=== PATIENT | female | born 1980 | race Hispanic/Latino ===

== ENCOUNTER 2022-11-13 08:05 | Outpatient (CLI) | payer OTHER | END 2022-11-13 08:06 | disposition home or self-care (01) | LOC: CSHWCC 08:05 | PROVIDERS: ATTEND Nurse Practitioner Family | DX: T81.89XD Other complications of procedures, not elsewhere classified, subsequent encounter (principal); R60.0 Localized edema | CPT/HCPCS: 29445; 97607 ==

== ENCOUNTER 2022-11-19 11:27 | Outpatient (CLI) | payer OTHER | END 2022-11-19 11:28 | disposition home or self-care (01) | LOC: CSHWCC 11:27 | PROVIDERS: ATTEND Nurse Practitioner Family | DX: T81.89XD Other complications of procedures, not elsewhere classified, subsequent encounter (principal) ==

== ENCOUNTER 2022-11-21 10:46 | Outpatient (CLI) | payer OTHER | END 2022-11-21 10:47 | disposition home or self-care (01) | LOC: CSHWCC 10:46 | PROVIDERS: ATTEND Nurse Practitioner Family | DX: T81.89XD Other complications of procedures, not elsewhere classified, subsequent encounter (principal); R60.0 Localized edema | CPT/HCPCS: 97607 ==

== ENCOUNTER 2022-11-27 12:58 | Outpatient (CLI) | payer SELFPAY | END 2022-11-27 12:59 | disposition home or self-care (01) | LOC: CSHWCC 12:58 | PROVIDERS: ATTEND Nurse Practitioner Family | DX: R60.0 Localized edema (principal) | CPT/HCPCS: 99213 ==